=== PATIENT | male | born 1980 | race Caucasian/White ===

== ENCOUNTER 2017-08-15 09:29 | Emergency (ER) | payer BC, OTHER ==
[2017-08-15] MEDS ORDERED: IBUPROFEN 600 MG TABLET PO ONE (09:49)
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
[2017-08-15 09:59] LABS: URINE APPEARANCE CLEAR; URINE BILIRUBIN NEGATIVE (NEGATIVE); URINE BLOOD NEGATIVE (NEGATIVE); URINE COLOR YELLOW; URINE GLUCOSE (UA) NEGATIVE (NEGATIVE); URINE KETONE NEGATIVE (NEGATIVE); URINE LEUKOCYTE ESTERASE NEGATIVE (NEGATIVE); URINE NITRITE NEGATIVE (NEGATIVE); URINE PROTEIN NEGATIVE (NEGATIVE); URINE UROBILINOGEN 0.2 E.U./dL (0.20 - 1.00)
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
== END 2017-08-15 10:56 | disposition home or self-care (01) ==
LOC: ER 09:29
DX: G89.11 Acute pain due to trauma (principal); M54.2 Cervicalgia; M54.5 Low back pain; R07.81 Pleurodynia; V47.5XXA Car driver injured in collision with fixed or stationary object in traffic accident, initial encounter; Y92.411 Interstate highway as the place of occurrence of the external cause; I10 Essential (primary) hypertension
CPT/HCPCS: 71046; 72050; 72110; 81003; 99283; 99284